=== PATIENT | female | born 2000 | race American Indian/Alaskan Native ===

== ENCOUNTER 2019-03-07 19:28 | Inpatient (IN) | payer MEDICAID ==
[2019-03-07] MEDS ORDERED: BRETHINE SUB-Q PRN (20:30)
[2019-03-07] MEDS ORDERED: AMPICILLIN/NS 2 GM/100 ML 2 GM/100 ML BAG IV ONE (20:30)
[2019-03-07] MEDS ORDERED: SUBLIMAZE IV PRN (20:30)
--- NOTE | 2019-03-07 20:39 | History and Physical Report ---
History of Present Illness Date of examination: 03/07/19 Date of admission: 03/07/19 20:26 Chief complaint: Labor History of present illness: 19year old presents to L&D in active labor with advanced cervical dilation. She states her water broke at 20:10 and was clear. Patient denies vaginal bleeding. Patient had care at [facility] and records are available. LMP 06/15/18. EDC 03/22/19. significant for the following: class 3 obesity, late presentation for care, teenage , UTI (treated and JOSE ANTONIO negative), rubella nonimmune and varicella nonimmune, vitamin D deficiency (supplemented with Vitamin D), anemia (supplemented with iron), GBS positive. labs are as follows: O+, antibody screen negative, rubella nonimmune, hepatitis B surface antigen negative, HIV negative, RPR nonreactive, hemoglobin electrophoresis AA, GC negative, CT negative, varicella nonimmune, trichomonas negative, diabetes screen 80, GBS positive. Past History Past Medical History: other (class 3 obesity) Past Surgical History: no surgical history RESIDENTIAL TREATMENT SPECIALIST History: denies: abnormal PAP smear, chlamydia, gonorrhea, hepatitis B, hepatitis C, herpes, HIV, syphilis, trichomonas Family/Genetic History: none Social history: lives with family, full code. denies: smoking, alcohol abuse, p rescription drug abuse, IV drug use - Obstetrical History Expected Date of Delivery: 03/22/19 Actual Gestation: 37 Week(s) 6 Day(s) : 3 Para: 1 Hx # Term Pregnancies: 2 Number of Pregnancies: 0 Spontaneous Abortions: 1 Induced : 0 Number of Living Children: 1 Medications and Allergies Allergies Allergy/AdvReac Type Severity Reaction Status Date / Time No Known Allergies Allergy Verified 03/07/19 20:41 Active Meds: Active Medications Ephedrine Sulfate (Ephedrine Sulfate) 10 mg IV Q2M PRN PRN Reason: Hypotension Fentanyl (Sublimaze) 100 mcg IV Q2H PRN PRN Reason: Labor Pain Oxytocin/Sodium Chloride (Pitocin/Ns 20 Unit/1000ml Drip) 20 units in 1,000 mls @ 125 mls/hr IV DIRECT YSABEL Lactated Ringer's (Lactated Ringers) 1,000 mls @ 125 mls/hr IV DIRECT YSABEL Ampicillin Sodium (Polycillin/Ns 2 Gm/100 Ml) 2 gm in 100 mls @ 100 mls/hr IV ONCE ONE; Protocol Stop: 03/07/19 21:29 Ampicillin Sodium (Ampicillin/Ns 1 Gm/50 Ml) 1 gm in 50 mls @ 100 mls/hr IV Q4HR [facility]; Protocol Terbutaline Sulfate (Brethine) 0.25 mg SUB-Q ONCE PRN PRN Reason: Hyperstimulation/Hypertonicity Review of Systems All systems: negative (contractions and leaking of water) - Physical Exam Cardiovascular: Regular rate, Normal S1, Normal S2 Lungs: Positive: Clear to auscultation Abdomen: Positive: normal appearance, soft. Negative: distention, tenderness, guarding, rigidity Genitourinary (Female): Positive: normal external genitalia, normal perenium. Negative: perineal/vulvar lesions (no lesions noted on careful exam with bright light upon admission; pt. denies prodromal symptoms) Vagina: Positive: other (moderate amount of clear fluid) Uterus: Positive: enlarged (size=dates) Anus/Rectum: Positive: normal perianal skin Extremities: Positive: normal - Obstetrical FHR: category 1 Uterine Contraction Monitor Mode: External Cervical Dilatation: 5 Cervical Effacement Percentage: 90 station: -1 Uterine Contraction Pattern: Regular Uterine Contraction Intensity: Moderate Results Result Diagrams: 03/07/19 20:30 All other labs normal. Assessment and Plan A: at 37 6/7 weeks gestation. Active labor. Spontaneous rupture of membranes. GBS positive. P: Admit. GBS prophylaxis. EFM. Anticipate vaginal .
[2019-03-07 20:54] LABS: Hemoglobin 10.9 gm/dl (10.1-14.3); Mean Corpuscular HGB Conc 33 % (30-34); Mean Corpuscular Volume 78 fl (79-97); Platelet Count 268 K/mm3 (140-440); Red Blood Count 4.21 M/mm3 (3.65-5.03); Red Cell Distribution Width 15.4 % (13.2-15.2)
[2019-03-07] MEDS ORDERED: PITOCin/NS 20 UNIT/1000ML DRIP 20 UNITS/1,000 ML BAG IV SCH (21:00)
[2019-03-07] MEDS ORDERED: LACTATED RINGERS 1,000 ML IV SCH (21:00)
--- NOTE | 2019-03-08 00:09 | Anesthesia Consultation ---
Anesthesia Consult and Med Hx Date of service: 03/08/19 - Airway Anesthetic Teeth Evaluation: Good ROM Head & Neck: Adequate Mental/Hyoid Distance: Adequate Mallampati Class: Class III Intubation Access Assessment: Probably Good - Pulmonary Exam CTA: Yes - Cardiac Exam Cardiac Exam: RRR - Pre-Operative Health Status ASA Pre-Surgery Classification: ASA3 Proposed Anesthetic Plan: Epidural, Spinal - Pulmonary Hx Smoking: No Hx Asthma: Yes (as a child) Hx Respiratory Symptoms: No SOB: No COPD: No Home Oxygen Therapy: No Hx Pneumonia: No Hx Sleep Apnea: No - Cardiovascular System Hx Hypertension: No Hx Coronary Artery Disease: No Hx Heart Attack/AMI: No Hx Angina: No Hx Percutaneous Transluminal Coronary Angioplasty (PTCA): No Hx Cardia Arrhythmia: No Hx Pacemaker: No Hx Internal Defibrillator: No Hx Valvular Heart Disease: No Hx Heart Murmur: No Hx Peripheral Vascular Disease: No - Central Nervous System Hx Neuromuscular Disorder: No Hx Seizures: No CVA: No Hx Back Pain: Yes Hx Psychiatric Problems: No - Gastrointestinal Hx Ulcer: No Hx Gastroesophageal Reflux Disease: Yes - Endocrine Hx Renal Disease: No Hx End Stage Renal Disease: No Hx Cirrhosis: No Hx Liver Disease: No Hx Insulin Dependent Diabetes: No Hx Non-Insulin Dependent Diabetes: No Hx Thyroid Disease: No Hx Hypothyroidism: No Hx Hyperthyroidism: No - Hematic Hx Anemia: No Hx Sickle Cell Disease: No - Other Systems Hx Alcohol Use: Yes Hx Substance Use: No Hx Cancer: No Hx Obesity: Yes (BMI 45)
--- NOTE | 2019-03-08 00:10 | Anesthesia Day of Surgery ---
Anesthesia Day of Surgery - Day of Surgery Patient Examined: Yes Patient H&P Reviewed: Yes Patient is NPO: Yes Beta Blockers: No Cardiac Clearance: No Pulmonary Clearance: No Chema's Test: N/A
[2019-03-08] MEDS ORDERED: NARCAN 2 MG/2 ML IV PRN (00:11)
--- NOTE | 2019-03-08 00:11 | Post Anesthesia Evaluation ---
- Post Anesthesia Evaluation Patient Participated: Yes Airway Patent: Yes Stable Respiratory Function: Yes Nausea/Vomiting: No Temp > 96.8F: Yes Pain Manageable: Yes Adequeate Hydration: Yes Anesthesia Complications: No Block Receding Appropriately: Yes Patient on Ventilator: No
[2019-03-08] MEDS: AMPICILLIN/NS 1 GM/50 ML 1 GM/50 ML BAG IV SCH ×2 (00:50→05:20)
[2019-03-08] MEDS ORDERED: fentaNYL-BUPIV 2 MCG/ML-0.125% 200 MCG/100 ML BAG EPIDURAL SCH (01:00)
[2019-03-08] MEDS ORDERED: PITOCin/NS 30 UNIT/500ML 30,000 MILLIUNITS/500 ML BAG IV ONE (02:15)
[2019-03-08] MEDS ORDERED: PITOCin/NS 30 UNIT/500ML 30 UNITS/500 ML BAG IV SCH (03:00)
[2019-03-08] MEDS ORDERED: MARCAINE 0.25% INFILTRATI ONE (03:02)
[2019-03-08] MEDS ORDERED: TUCKS PAD TP PRN (06:02)
[2019-03-08] MEDS ORDERED: DULCOLAX PR PRN (06:02)
[2019-03-08] MEDS ORDERED: LANSINOH TP PRN (06:02)
[2019-03-08] MEDS ORDERED: BENADRYL PO PRN (06:02)
[2019-03-08] MEDS ORDERED: MILK OF MAGNESIA PO PRN (06:02)
--- NOTE | 2019-03-08 06:10 | Procedure Note ---
OB Delivery Note - Delivery Date of Delivery: 03/08/19 Surgeon: NESHA GERONIMO Estimated blood loss: other (250 cc) - Vaginal Delivery presentation: vertex Delivery position: OA Intrapartum events: none Delivery induction: none Delivery augmentation: pitocin Delivery monitor: external FHT, external uterine, internal FHT Route of delivery: Delivery placenta: spontaneous Delivery cord: 3 umbilical vessels, other (short cord) Episiotomy: none Delivery laceration: none Anesthesia: epidural Delivery comments: Spontaneous vaginal delivery at 05:41 of liveborn female infant weighing 6 lb. 8 oz. over intact perineum with apgars of 7/9. Baby placed immediately on mom's abdomen after . Baby bulb suctioned and dried. Spontaneous cry and respirations. 3 vessel cord double clamped and cut. Spontaneous delivery of intact placenta and membranes at 05:45; Pitocin to IV fluids after delivery of placenta. EBL 250 cc. Fundus firm and midline. Vaginal sweep negative. No lacerations noted. Sponge count correct. Mother and baby stable in birthing room.
[2019-03-08] MEDS ORDERED: CYTOTEC ONE (06:56)
[2019-03-08] MEDS ORDERED: SODIUM CHLORIDE FLUSH SYRINGE 10 ML IV PRN (07:00)
[2019-03-08] MEDS ORDERED: CYTOTEC PR ONE (07:07)
[2019-03-08] MEDS: IBUPROFEN PO SCH (08:58)
--- NOTE | 2019-03-08 09:53 | Ultrasound Report ---
PROCEDURE: US PELVIC LIMITED TECHNIQUE: Transabdominal pelvic ultrasound performed. HISTORY: Check for retained placenta COMPARISON: None FINDINGS: There is an enlarged uterus measuring 18.5 x 9.8 x 9.7 cm. There is heterogeneous endometrial thickening in the lower uterine segment region. There is a small h ypoechoic structure area in this region measuring 1.1 x 0.7 x 1.4 cm. Although I cannot confirm blood flow on color Doppler in this area, I cannot exclude retained products. The adnexal regions were not evaluated. There is no pelvic free fluid. IMPRESSION: Enlarged uterus. There is heterogeneous endometrial thickening in the lower uterine segmen t/cervix including ovoid 11 mm hypoechoic area/lesion. I cannot exclude retained products of concepti on. This document is electronically signed by Hannah Vega MD., Mar 08 2019 09:50:58 AM ET
[2019-03-08 10:02] LABS: Alanine Aminotransferase 8 units/L (7-56); Albumin 2.8 g/dL (3.9-5); Blood Urea Nitrogen 4 mg/dL (7-17); Uric Acid 4.4 mg/dL (3.5-7.6)
[2019-03-08 10:20] LABS: BUN/Creatinine Ratio 6; Calcium 8.6 mg/dL (8.4-10.2); Hemolysis Index 9
[2019-03-09 04:51] LABS: Bilirubin,Urine NEG (Negative); Blood,Urine LG (Negative); Color,Urine Yellow (Yellow); Mucus,Urine FEW /HPF
[2019-03-09 04:54] LABS: RBC,Urine > 182.0 /HPF (0.0-6.0)
[2019-03-09 07:47] LABS: Hematocrit 27.7 % (30.3-42.9); Hemoglobin 9.2 gm/dl (10.1-14.3)
[2019-03-09] MEDS: MACROBID PO SCH ×2 (09:49→22:01)
--- NOTE | 2019-03-09 11:01 | Progress Note ---
Assessment and Plan A: day 1 S/P spontaneous vaginal delivery. Anemia secondary to and blood loss. Possible UTI. P: Iron supplementation. Encouraged ambulation. Urine C&S. Macrobid 100 mg po BID. Subjective - Subjective Date of service: 03/09/19 Principal diagnosis: day 1 S/P spontaneous vaginal delivery Interval history: day 1 S/P spontaneous vaginal delivery. Doing well. Patient reports small amount of lochia. Voiding without difficulty, ambulating well, tolerating a regular diet without nausea or vomiting, passing gas. Patient denies headache, chest pain, cough, shortness of breath, leg pain, dizziness, heavy vaginal bleeding, or any other problems. Patient reports: appetite normal, voiding normally, pain well controlled, flatus, ambulating normally, no dizzy ambulation, no nauseated [place]: doing well, bottle feeding Objective - Vital Signs Latest vital signs: Vital Signs Temp Pulse Resp BP BP Pulse Ox 03/09/19 07:50 97.9 F 89 18 110/52 03/09/19 00:00 98.7 F 88 18 117/79 03/08/19 16:05 97.9 F 69 20 116/60 98 03/08/19 11:48 97.8 F 75 20 127/74 99 Intake and Output 03/08/19 03/09/19 03/09/19 23:59 07:59 15:59 Intake Total 120 660 Output Total 800 Balance 120 -140 Intake: Oral 120 Intake, Free Water 660 Output: Urine 800 Void 800 Other: Total, Intake Amount 120 Total, Output Amount 800 # Voids Void 1 - Exam Narrative Exam: Urinalysis shows WBCs. Cardiovascular: Present: Regular rate, Normal S1, Normal S2, No murmurs Lungs: Present: Clear to auscultation Abdomen: Present: normal appearance, soft, normal bowel sounds. Absent: distention, tenderness, guarding, rigidity Uterus: Present: normal, firm, fundal height below umbilicus. Absent: bogginess, tenderness Extremities: Present: normal, edema (mild pedal edema bilaterally). Absent: tenderness - Labs Labs: Abnormal lab results 03/09/19 03/09/19 Range/Units 04:00 07:25 Hgb 9.2 L (10.1-14.3) gm/dl Hct 27.7 L (30.3-42.9) % Urine WBC (Auto) 74.0 H (0.0-6.0) /HPF
[2019-03-09] MEDS: IBUPROFEN PO SCH ×2 (13:35→22:02)
[2019-03-09] MEDS: NORCO 5/325 PO PRN (13:36)
[2019-03-09] MEDS: FEOSOL PO SCH ×2 (13:36→22:02)
[2019-03-09] MEDS: COLACE PO SCH (22:02)
[2019-03-10] MEDS: IBUPROFEN PO SCH ×4 (06:41→18:10)
[2019-03-10] MEDS: MACROBID PO SCH ×2 (10:58→22:12)
[2019-03-10] MEDS: FEOSOL PO SCH ×2 (10:58→22:12)
[2019-03-10] MEDS: COLACE PO SCH ×2 (10:58→22:12)
--- NOTE | 2019-03-10 12:50 | Progress Note ---
Assessment and Plan - Patient Problems (1) Status post normal vaginal delivery Current Visit: Yes Status: Acute Plan to address problem: PPD 2 - stable Discharge to home today Desires Nexplanon for contraception Follow-up at [facility] as needed or in 6 weeks for exam (2) Anemia due to blood loss, acute Current Visit: Yes Status: Acute Plan to address problem: Asymptomatic Continue iron therapy (3) UTI (urinary tract infection) following delivery Current Visit: Yes Status: Acute Qualifiers: urinary tract infection type: bladder infection Qualified Code(s): O86.22 - Infection of bladder following delivery Plan to address problem: Currently asymptomatic Continue antibiotics therapy (4) Morbid obesity with BMI of 45.0-49.9, adult Current Visit: Yes Status: Acute Subjective - Subjective Date of service: 03/10/19 Principal diagnosis: PPD #2; s/p Interval history: see H&P, OB Delivery Procedure Notes and PP/TRAINING ASSISTANT Progress Note Patient reports: appetite normal, voiding normally, pain well controlled, ambulating normally, other (denies fever, chills or backpain) [place]: doing well, bottle feeding Objective - Vital Signs Latest vital signs: Vital Signs Temp Pulse Resp BP BP Pulse Ox 03/10/19 08:14 98.1 F 56 L 20 133/80 99 03/09/19 23:15 98.7 F 78 18 114/78 03/09/19 17:05 98.9 F 58 L 20 113/50 98 Intake and Output 03/09/19 03/10/19 03/10/19 23:59 07:59 15:59 Intake Total 1140 300 480 Balance 1140 300 480 Intake: Oral 600 480 Intake, Free Water 540 300 Other: Total, Intake Amount 600 480 # Voids Void 2 2 # Bowel Movements 1 1 - Exam Lungs: Present: Clear to auscultation Abdomen: Present: normal appearance, soft Vulva: both: normal Uterus: Present: normal, firm, fundal height below umbilicus Extremities: Present: normal Comments: scant lochia
--- NOTE | 2019-03-10 12:57 | Discharge Summary ---
Providers - Providers Date of Admission: 03/07/19 20:26 Date of discharge: 03/10/19 Attending physician: EDY PIRES MD Primary care physician: EDY PIRES MD Hospitalization Reason for admission: active labor, IUP at term Delivery: Episiotomy: none Laceration: none Other procedures: none complications: none Discharge diagnosis: IUP at term delivered [place] baby: female Hospital course: Uncomplicated Condition at discharge: Stable Disposition: NC-01 TO HOME OR SELFCARE - Discharge Diagnoses (1) Status post normal vaginal delivery Status: Acute (2) Anemia due to blood loss, acute Status: Acute Comment: Asymptomatic Continue iron therapy (3) UTI (urinary tract infection) following delivery Status: Acute Qualifiers: urinary tract infection type: bladder infection Qualified Code(s): O86.22 - Infection of bladder following delivery Comment: Asymptomatic Finish course of antibiotics therapy and increase water intake (4) Morbid obesity with BMI of 45.0-49.9, adult Status: Acute Plan - Discharge Medications Prescriptions: Ferrous Sulfate [Feosol 325 MG tab] 325 mg PO BID #60 tablet Nitrofurantoin Eagle/M-Cryst [Macrobid CAP] 100 mg PO Q12HR #12 capsule - Provider Discharge Summary Activity: routine, no sex for 6 weeks, no heavy lifting 4 weeks, no strenuous exercise Diet: routine Instructions: routine Additional instructions: [] Smoking cessation referral if applicable(refer to patient education folder for contact #) [] Refer to [facility]'s [facility] Center Booklet Call your doctor immediately for: * Fever > 100.5 * Heavy vaginal bleeding ( >1 pad per hour) * Severe persistent headache * Shortness of breath * Reddened, hot, painful area to leg or breast * Drainage or odor from incision. * Keep incision clean and dry at all times and follow doctor's instructions regarding bathing/showering - Follow up plan Follow up: EDY PIRES MD [Primary Care Provider] - 6 Weeks (Follow-up at [facility] as needed or in 6 weeks for exam) Forms: [facility] Discharge Summary
[2019-03-10] MEDS ORDERED: M-M-R II VACCINE SUB-Q ONE (15:18)
[2019-03-10 17:12] LABS: Hematocrit 30.4 % (30.3-42.9); Hemoglobin 9.9 gm/dl (10.1-14.3); Mean Corpuscular HGB Conc 32 % (30-34); Mean Corpuscular Volume 79 fl (79-97); Platelet Count 271 K/mm3 (140-440); Red Blood Count 3.83 M/mm3 (3.65-5.03); Red Cell Distribution Width 15.6 % (13.2-15.2)
[2019-03-10 17:50] LABS: Alanine Aminotransferase 9 units/L (7-56)
[2019-03-10 20:24] LABS: Bilirubin,Urine NEG (Negative); Blood,Urine LG (Negative); Color,Urine Yellow (Yellow); Mucus,Urine FEW /HPF; Protein,Urine <15 mg/dL mg/dL (Negative); Urobilinogen,Urine < 2.0 mg/dL (<2.0)
[2019-03-11] MEDS: IBUPROFEN PO SCH ×6 (00:37→22:40)
[2019-03-11] MEDS: COLACE PO SCH ×2 (09:25→22:34)
[2019-03-11] MEDS: FEOSOL PO SCH ×2 (09:26→22:35)
[2019-03-11] MEDS: MACROBID PO SCH ×2 (09:27→22:35)
--- NOTE | 2019-03-11 09:32 | Progress Note ---
Assessment and Plan - Patient Problems (1) Status post normal vaginal delivery Current Visit: Yes Status: Acute Plan to address problem: Dischage home today Schedule 1 week appt for B/P check Schedule 6 week appt for routine PPV (2) Anemia due to blood loss, acute Current Visit: Yes Status: Acute Plan to address problem: Continue daily po iron supplementation after d/c home (3) Morbid obesity with BMI of 45.0-49.9, adult Current Visit: Yes Status: Acute (4) Elevated blood pressure reading Current Visit: Yes Status: Acute Plan to address problem: Discussed Pre-E warning signs and symptoms Advised to notify office or ER immediately for such symptoms F/U at office in 7 days for B/P check Verbalized understanding and agrees with POC Subjective - Subjective Date of service: 03/11/19 Principal diagnosis: PPD #3; s/p ; Elevated B/Ps (asymptomatic) Patient reports: appetite normal, voiding normally, pain well controlled, flatus, bowel movement, ambulating normally, other (States she feels fine. Denies any H/A, visual changes or epigastric pain. Desires to go home.) : doing well, bottle feeding Objective - Vital Signs Latest vital signs: Vital Signs Temp Pulse Resp BP BP Pulse Ox 03/11/19 08:10 97.9 F 51 L 24 152/78 96 03/11/19 04:14 98.0 F 59 L 18 126/67 99 03/11/19 00:31 98.0 F 18 141/92 03/10/19 20:58 98.6 F 18 130/69 03/10/19 16:09 98.5 F 65 18 144/87 99 03/10/19 15:45 98.5 F 58 L 18 139/83 100 Intake and Output 03/10/19 03/11/19 03/11/19 23:59 07:59 15:59 Intake Total 680 600 Balance 680 600 Intake: Oral 680 Intake, Free Water 600 Other: Total, Intake Amount 200 # Voids Void 2 - Exam Breasts: Present: normal Cardiovascular: Present: Regular rate Lungs: Present: Normal air movement Abdomen: Present: soft, normal bowel sounds Uterus: Present: firm, fundal height below umbilicus (U-2) Extremities: Present: edema (slight edema in bilat feet) Deep Tendon Reflex Grade: Normal +2 - Labs Labs: Abnormal lab results 03/10/19 03/10/19 03/10/19 Range/Units 16:47 16:47 Unknown Hgb 9.9 L (10.1-14.3) gm/dl MCH 26 L (28-32) pg RDW 15.6 H (13.2-15.2) % Lactate Dehydrogenase 231 H (91-180) units/L Urine WBC (Auto) 10.0 H (0.0-6.0) /HPF
--- NOTE | 2019-03-11 12:30 | Event Note ---
Called to attention of persistent elevated blood pressures, no sx of preeclampsia. Plan: 1. Draw [facility] labs 2. Start Labetolol 200mg PO BID 3. Hold discharge at this time during evaluation.
[2019-03-11 13:52] LABS: Hematocrit 30.2 % (30.3-42.9); Hemoglobin 9.9 gm/dl (10.1-14.3); Mean Corpuscular HGB Conc 33 % (30-34); Mean Corpuscular Volume 79 fl (79-97); Platelet Count 275 K/mm3 (140-440); Red Blood Count 3.83 M/mm3 (3.65-5.03); Red Cell Distribution Width 15.5 % (13.2-15.2)
[2019-03-11 14:08] LABS: Alanine Aminotransferase 10 units/L (7-56); BUN/Creatinine Ratio 9; Blood Urea Nitrogen 6 mg/dL (7-17); Calcium 8.7 mg/dL (8.4-10.2); Hemolysis Index 11
[2019-03-11] MEDS: NORMODYNE PO SCH (19:15)
[2019-03-12] MEDS: NORMODYNE PO SCH ×3 (01:53→21:40)
[2019-03-12] MEDS: COLACE PO SCH ×2 (10:05→21:39)
[2019-03-12] MEDS: IBUPROFEN PO SCH ×3 (10:05→21:40)
[2019-03-12] MEDS: FEOSOL PO SCH ×2 (10:05→21:39)
[2019-03-12] MEDS: MACROBID PO SCH ×2 (10:05→21:39)
[2019-03-12] MEDS: NORCO 5/325 PO PRN (21:40)
[2019-03-12 21:41] VITALS: BP 146/60
== END 2019-03-12 22:30 | disposition home or self-care (01) | DRG 774 ==
LOC: TRG 19:28 → LD 20:26 → TRG 20:26 → OB 03-08 09:54
PROVIDERS: ADMIT Obstetrics & Gynecology; ATTEND Obstetrics & Gynecology
PROC: 10E0XZZ Delivery of Products of Conception, External Approach (ICD-10-PCS; principal; 2019-03-08)
PROC: 3E0R3BZ Introduction of Anesthetic Agent into Spinal Canal, Percutaneous Approach (ICD-10-PCS; 2019-03-08)
PROC: 00HU33Z Insertion of Infusion Device into Spinal Canal, Percutaneous Approach (ICD-10-PCS; 2019-03-08)
PROC: 3E0234Z Introduction of Serum, Toxoid and Vaccine into Muscle, Percutaneous Approach (ICD-10-PCS; 2019-03-10)
DX: O99.52 Diseases of the respiratory system complicating childbirth (principal); O75.3 Other infection during labor; O99.62 Diseases of the digestive system complicating childbirth; K21.9 Gastro-esophageal reflux disease without esophagitis; O99.214 Obesity complicating childbirth; O99.02 Anemia complicating childbirth; D62 Acute posthemorrhagic anemia; E66.01 Morbid (severe) obesity due to excess calories; O99.824 Streptococcus B carrier state complicating childbirth; O69.3XX0 Labor and delivery complicated by short cord, not applicable or unspecified; J45.909 Unspecified asthma, uncomplicated; Z3A.37 37 weeks gestation of pregnancy; Z37.0 Single live birth; Z23 Encounter for immunization
CPT/HCPCS: 36415; 76857; 80053; 81001; 82565; 83615; 84450; 84460; 84550; 85014; 85018; 85027; 85049; 86592; 86850; 86900; 86901; 90707; G0378; J0290; J2590; J3010; J7120